=== PATIENT | female | born 1980 | race Caucasian/White ===

== ENCOUNTER 2019-06-06 19:02 | Outpatient (CLI) | payer BC ==
[~2019-06-06 19:02] MED LIST: ACET-1751 PO; IBUP-1223 PO; PRE-NATAL VITAMINS PO
[2019-06-06 20:54] LABS: BASOPHILS % (AUTO) 1 % (0-1); EOSINOPHILS # (AUTO) 0.06 x10^3/uL (0-0.4); EOSINOPHILS % (AUTO) 1 % (1-7); LYMPHOCYTES # (AUTO) 1.58 x10^3/uL (1-3.4); LYMPHOCYTES % (AUTO) 16 % (22-44); MD NO; MEAN CORPUSCULAR HEMOGLOBIN 29.4 pg (27.0-34.8); MEAN CORPUSCULAR HGB CONC 33.9 g/dL (32.4-35.8); MEAN CORPUSCULAR VOLUME 86.8 fL (80-100); MEAN PLATELET VOLUME 7.7 fL (7.4-10.4); MONOCYTES # (AUTO) 0.59 x10^3/uL (0.2-0.8); MONOCYTES % (AUTO) 6 % (2-9); NEUTROPHILS # (AUTO) 7.56 x10^3/uL (1.8-6.8); NEUTROPHILS % (AUTO) 77 % (42-75); PLATELET COUNT 334 x10^3/uL (130-400); RED BLOOD COUNT 4.67 x10^6/uL (3.82-5.3); RED CELL DISTRIBUTION WIDTH 13.6 % (9.6-15.2)
[2019-06-06 21:04] LABS: ALANINE AMINOTRANSFERASE 14 U/L (12-78); ALBUMIN 2.7 g/dL (3.4-5.0); ANION GAP 10 mmol/L (5-15); CALCIUM 9.1 mg/dL (8.5-10.1); CHLORIDE 108 mmol/L (98-107); CREATININE 0.61 mg/dL (0.55-1.02)
[2019-06-06 21:06] LABS: ALKALINE PHOSPHATASE 155 U/L (45-117); BILIRUBIN,TOTAL 0.3 mg/dL (0.2-1.0); TOTAL PROTEIN 7.1 g/dL (6.4-8.2)
[2019-06-06 21:07] LABS: BILIRUBIN, DIRECT < 0.1 mg/dL (0.1-0.2)
== END 2019-06-06 23:00 | disposition home or self-care (01) ==
LOC: LDOP 19:02
PROVIDERS: ATTEND Obstetrics & Gynecology
DX: O26.893 Other specified pregnancy related conditions, third trimester (principal); R10.9 Unspecified abdominal pain; Z3A.38 38 weeks gestation of pregnancy
CPT/HCPCS: 36415; 59025; 80053; 82248; 84550; 85025; 99211; G0463

== ENCOUNTER 2019-06-08 09:30 | Inpatient (IN) | payer BC ==
[~2019-06-08] VITALS: Ht 160 cm; Wt 85.0 kg
[2019-06-08] MEDS ORDERED: SODIUM CITRATE/CITRIC ACID 30 ML UDC PO ONE (10:30)
[2019-06-08] MEDS ORDERED: LACTATED RINGERS 1,000 ML IVBOLUS ONE (10:30)
[2019-06-08] MEDS ORDERED: METOCLOPRAMIDE 5 MG/ML, 2ML IV ONE (10:30)
[2019-06-08] MEDS ORDERED: SODIUM CITRATE/CITRIC ACID 30 ML UDC ONE ×2 (11:02→12:28)
[2019-06-08] MEDS ORDERED: METOCLOPRAMIDE 5 MG/ML, 2ML ONE (11:02)
[2019-06-08] MEDS ORDERED: OXYTOCIN 30U/ 0.9% NaCL 500ML 500 ML ONE (11:02)
[2019-06-08 11:27] LABS: BASOPHILS # (AUTO) 0.03 x10^3/uL (0-0.1); BASOPHILS % (AUTO) 0 % (0-1); EOSINOPHILS # (AUTO) 0.03 x10^3/uL (0-0.4); EOSINOPHILS % (AUTO) 0 % (1-7); LYMPHOCYTES # (AUTO) 1.37 x10^3/uL (1-3.4); LYMPHOCYTES % (AUTO) 18 % (22-44); MD NO; MEAN CORPUSCULAR HEMOGLOBIN 29.3 pg (27.0-34.8); MEAN CORPUSCULAR HGB CONC 33.7 g/dL (32.4-35.8); MEAN CORPUSCULAR VOLUME 87.1 fL (80-100); MEAN PLATELET VOLUME 7.9 fL (7.4-10.4); MONOCYTES # (AUTO) 0.45 x10^3/uL (0.2-0.8); MONOCYTES % (AUTO) 6 % (2-9); NEUTROPHILS # (AUTO) 5.88 x10^3/uL (1.8-6.8); NEUTROPHILS % (AUTO) 76 % (42-75); PLATELET COUNT 312 x10^3/uL (130-400); RED CELL DISTRIBUTION WIDTH 13.3 % (9.6-15.2)
[2019-06-08] MEDS ORDERED: NEWBORN KIT ONE (11:33)
[2019-06-08] MEDS ORDERED: FENTANYL PF 100 MCG/2ML ONE (12:00)
[2019-06-08] MEDS ORDERED: morphine SULFATE/PF 0.5 MG/ML, 10ML ONE (12:00)
[2019-06-08] MEDS ORDERED: CEFAZOLIN 1,000 MG ONE (12:03)
[2019-06-08] MEDS ORDERED: KETOROLAC 30 MG/1 ML ONE (12:03)
[2019-06-08] MEDS ORDERED: WATER-INJECTION,STERILE 10 ML IV ONE (12:03)
[2019-06-08] MEDS ORDERED: ONDANSETRON 2MG/ML, 2ML ONE (12:03)
[2019-06-08] MEDS ORDERED: OXYTOCIN 10 UNITS/ML, 1ML ONE (12:03)
[2019-06-08] MEDS ORDERED: DEXAMETHASONE 4 MG/ML, 1ML ONE (12:03)
[2019-06-08] MEDS: OXYTOCIN 30U/ 0.9% NaCL 500ML 500 ML IV SCH ×2 (13:54→23:54)
[2019-06-08] MEDS: LACTATED RINGERS 1,000 ML IV SCH ×4 (13:54→23:54)
[2019-06-08] MEDS ORDERED: ACETAMINOPHEN 325 MG TABLET PO PRN (14:00)
[2019-06-08] MEDS ORDERED: SIMETHICONE 80 MG CHEW TAB PO PRN (14:00)
[2019-06-08] MEDS ORDERED: OXYcodone IR 5MG TABLET PO PRN (14:00)
[2019-06-08] MEDS ORDERED: ONDANSETRON 2MG/ML, 2ML IV PRN (14:00)
[2019-06-08] MEDS ORDERED: MISOPROSTOL 200 MCG TABLET SL PRN (14:00)
[2019-06-08] MEDS: KETOROLAC 30 MG/1 ML IV SCH ×2 (14:00→19:29)
[2019-06-08] MEDS ORDERED: DIPH,PERTUSS(ACELL),TET VAC/PF NC IM-VACC PRN (14:00)
[2019-06-08] MEDS ORDERED: morphine SULFATE 10 MG/ML, 1ML IVPush PRN ×2 (14:00→17:30)
[2019-06-08] MEDS ORDERED: CALCIUM CARBONATE 500 MG TAB.CHEW PO PRN (14:00)
[2019-06-08] MEDS ORDERED: METOCLOPRAMIDE 5 MG/ML, 2ML IV PRN (14:00)
[2019-06-08] MEDS ORDERED: METHYLERGONOVINE 0.2 MG/ML IM PRN (14:00)
[2019-06-08 16:30] VITALS: BP 104/69
[2019-06-08] MEDS ORDERED: NO SEDATIVES, TRANQUILIZERS OR ANTIEMETICS XX SCH (17:00)
[2019-06-08] MEDS ORDERED: DIPHENHYDRAMINE 50 MG/ML, 1ML IV PRN (17:00)
[2019-06-08] MEDS ORDERED: ONDANSETRON 2MG/ML, 2ML IVPush PRN (17:00)
[2019-06-08] MEDS ORDERED: NALOXONE 0.4 MG/ML, 1ML IV PRN (17:00)
[2019-06-08] MEDS ORDERED: OXYcodone/APAP 5/325MG TABLET ONE (17:01)
[2019-06-08] MEDS: OXYcodone/APAP 5/325MG TABLET PO PRN ×2 (17:10→21:23)
[2019-06-08] MEDS ORDERED: EPHEDRINE 50 MG/ML, 1ML IV PRN (17:30)
[2019-06-08 19:20] VITALS: BP 104/67
[2019-06-08] MEDS: DOCUSATE 100 MG CAPSULE PO SCH (19:29)
[2019-06-08 21:30] LABS: BASOPHILS # (AUTO) 0.03 x10^3/uL (0-0.1); BASOPHILS % (AUTO) 0 % (0-1); EOSINOPHILS % (AUTO) 0 % (1-7); LYMPHOCYTES % (AUTO) 7 % (22-44); MD NO; MEAN CORPUSCULAR HEMOGLOBIN 29.3 pg (27.0-34.8); MEAN CORPUSCULAR HGB CONC 33.7 g/dL (32.4-35.8); MEAN CORPUSCULAR VOLUME 87.1 fL (80-100); MEAN PLATELET VOLUME 7.3 fL (7.4-10.4); MONOCYTES # (AUTO) 0.57 x10^3/uL (0.2-0.8); MONOCYTES % (AUTO) 5 % (2-9); NEUTROPHILS # (AUTO) 9.46 x10^3/uL (1.8-6.8); NEUTROPHILS % (AUTO) 87 % (42-75); PLATELET COUNT 244 x10^3/uL (130-400); RED CELL DISTRIBUTION WIDTH 13.8 % (9.6-15.2)
[2019-06-09 00:10] VITALS: BP 100/63
[2019-06-09] MEDS: KETOROLAC 30 MG/1 ML IV SCH ×4 (01:35→19:30)
[2019-06-09] MEDS: OXYcodone/APAP 5/325MG TABLET PO PRN ×4 (01:36→19:34)
[2019-06-09 03:45] VITALS: BP 95/60
[2019-06-09] MEDS: LACTATED RINGERS 1,000 ML IV SCH ×7 (05:54→23:13)
[2019-06-09] MEDS: DOCUSATE 100 MG CAPSULE PO SCH ×2 (07:38→19:30)
[2019-06-09] MEDS: PRENATAL VIT/IRON/FA 1 EACH TABLET PO SCH (07:38)
[2019-06-09 07:50] VITALS: BP 102/68
[2019-06-09] MEDS: OXYTOCIN 30U/ 0.9% NaCL 500ML 500 ML IV SCH ×3 (09:54→22:54)
[2019-06-09] MEDS: OXYcodone IR 5MG TABLET PO PRN (15:06)
[2019-06-09 19:20] VITALS: BP 98/65
[2019-06-10] MEDS: KETOROLAC 30 MG/1 ML IV SCH ×2 (01:33→08:13)
[2019-06-10] MEDS: OXYcodone IR 5MG TABLET PO PRN ×2 (01:38→10:12)
[2019-06-10] MEDS: OXYcodone/APAP 5/325MG TABLET PO PRN ×2 (06:14→14:51)
[2019-06-10 08:00] VITALS: BP 112/75
[2019-06-10] MEDS: DOCUSATE 100 MG CAPSULE PO SCH (08:14)
[2019-06-10] MEDS: PRENATAL VIT/IRON/FA 1 EACH TABLET PO SCH (08:14)
[2019-06-10 09:22] LABS: BASOPHILS # (AUTO) 0.03 x10^3/uL (0-0.1); BASOPHILS % (AUTO) 0 % (0-1); EOSINOPHILS # (AUTO) 0.14 x10^3/uL (0-0.4); EOSINOPHILS % (AUTO) 2 % (1-7); LYMPHOCYTES # (AUTO) 1.38 x10^3/uL (1-3.4); LYMPHOCYTES % (AUTO) 18 % (22-44); MD NO; MEAN CORPUSCULAR HEMOGLOBIN 28.8 pg (27.0-34.8); MEAN CORPUSCULAR HGB CONC 32.7 g/dL (32.4-35.8); MONOCYTES # (AUTO) 0.62 x10^3/uL (0.2-0.8); MONOCYTES % (AUTO) 8 % (2-9); NEUTROPHILS # (AUTO) 5.68 x10^3/uL (1.8-6.8); NEUTROPHILS % (AUTO) 72 % (42-75); PLATELET COUNT 264 x10^3/uL (130-400); RED BLOOD COUNT 3.84 x10^6/uL (3.82-5.3); RED CELL DISTRIBUTION WIDTH 13.9 % (9.6-15.2)
[2019-06-10] MEDS ORDERED: MEASLES,MUMPS&RUBELLA VACC/PF 0.5 ML SQ-VACC ONE (12:00)
[2019-06-10] MEDS ORDERED: IBUPROFEN 800 MG TABLET PO PRN (14:00)
[2019-06-10] MEDS ORDERED: DOCU-131 PO (16:22)
[2019-06-10] MEDS ORDERED: OXYC-302 PO (16:23)
== END 2019-06-10 17:40 | disposition home or self-care (01) | DRG 784 ==
LOC: LDIP 10:05 → 2NW 15:59
PROVIDERS: ADMIT Obstetrics & Gynecology; ATTEND Obstetrics & Gynecology
PROC: 10D00Z1 Extraction of Products of Conception, Low, Open Approach (ICD-10-PCS; principal; 2019-06-08)
PROC: 0UB70ZZ Excision of Bilateral Fallopian Tubes, Open Approach (ICD-10-PCS; 2019-06-08)
DX: O34.211 Maternal care for low transverse scar from previous cesarean delivery (principal); O26.873 Cervical shortening, third trimester; D62 Acute posthemorrhagic anemia; Z37.0 Single live birth; Z3A.38 38 weeks gestation of pregnancy; O90.81 Anemia of the puerperium; Z88.2 Allergy status to sulfonamides
CPT/HCPCS: 36415; 85025; 86592; 86850; 86900; 88302; 88305; G0378; J0690; J1100; J1885; J2274; J2405; J3010; J2590; J2765; J7120

== ENCOUNTER → 2020-06-11 | Outpatient (CLI) | payer OTHER ==
[~2020-06-11] MED LIST changes: +DOCU-131 PO; +OXYC-302 PO
== END | disposition home or self-care (01) ==
LOC: CFH 14:16
PROVIDERS: ATTEND Obstetrics & Gynecology Gynecology
DX: Z12.31 Encounter for screening mammogram for malignant neoplasm of breast (principal)
CPT/HCPCS: 77067